=== PATIENT | female | born 1980 | race Two or more races ===

== ENCOUNTER 2016-08-06 20:42 | Emergency (ER) | payer BC ==
[~2016-08-06] VITALS: Ht 154.9 cm; Wt 90.7 kg
[2016-08-06] MEDS ORDERED: IBUPROFEN800 M1 PO (21:36)
[2016-08-06] MEDS ORDERED: DEBROX15 M1 BOTH EARS (21:36)
[2016-08-06 21:49] VITALS: BP 130/84
[2016-08-06 21:50] VITALS: BP 129/83
--- NOTE | 2016-08-06 22:30 | Emergency Room Report ---
History of Present Illness General Chief Complaint: Sore Throat Source: Patient Present Illness HPI 36 YO F with right sided sore throat and lost of voice for 2 days. History of tonsillectomy. Denies pain when swallowing, fever/chills, rash. Able to swallow pills. Associated with bilateral ear pain. Didnt take any OTC meds. + sick child at home with URI symptoms. Allergies: Coded Allergies: Shrimp (Verified Allergy, Unknown, 08/06/16) Patient History Past Medical History: none Past Surgical History: other - tonsillectomy Pertinent Family History: none Social History: Denies: alcohol use, drug use, smoking Last Menstrual Period: 07/09/16 Now: No Immunizations: UTD Reviewed Nursing Documentation: PMH: Agreed, PSxH: Agreed Nursing Documentation-PMH Past Medical History: No History, Except For Hx Asthma: Yes Review of Systems All Other Systems: negative except mentioned in HPI Physical Exam Vital Signs Date Time Temp Pulse Resp B/P Pulse Ox O2 Delivery O2 Flow Rate FiO2 08/06/16 21:15 98.1 76 16 129/83 100 Room Air Sp02 EP Interpretation: reviewed, normal General Appearance: normal inspection, well appearing, no apparent distress, alert, GCS 15, non-toxic Head: normocephalic, atraumatic Eyes: bilateral eye EOMI, bilateral eye PERRL ENT: normal ENT inspection, hearing grossly normal, normal pharynx, no angioedema, normal voice, uvula midline, moist mucus membranes, other - Bilateral TMs blocked by cerumen Neck: normal inspection, full range of motion, supple, thyroid normal, no meningismus, no bony tend Respiratory: normal inspection, lungs clear, normal breath sounds, no respiratory distress, no retraction, no accessory muscle use, no wheezing Cardiovascular #1: regular rate, rhythm, no edema Gastrointestinal: normal inspection, normal bowel sounds, non tender, soft, no guarding, no hernia Genitourinary: no CVA tenderness Musculoskeletal: normal inspection, back normal, normal range of motion, Adilia' s Sign negative Neurologic: normal inspection, alert, oriented x3, responsive, handy man III-XII nml as tested, motor strength/tone normal, speech normal Psychiatric: normal inspection, judgement/insight normal, mood/affect normal Skin: normal inspection, normal color, no rash Medical Decision Making Diagnostic Impression: Primary Impression: Sore throat ER Course 36 YO F with sore throat. VSS. Afebrile. Bilateral ear pain likely from impacted cerumen - patient uses Qtips to clean ears No sign of strep in oropharynx Likely viral laryngitis given loss of voice Decadron given in ED Rx Ibuprofen, debrox for ears PMD followup DC home Last Vital Signs Date Time Temp Pulse Resp B/P Pulse Ox O2 Delivery O2 Flow Rate FiO2 08/06/16 21:50 98.1 16 129/83 100 Room Air 08/06/16 21:49 63 Status: improved Disposition: HOME, SELF-CARE Condition: Improved Scripts Carbamide Peroxide (DEBROX) 15 Ml Drops 10 DROP BOTH EARS TWICE A DAY for 4 Days, ML 0 Refills Prov: HERIBERTO CHAHAL M.D. 08/06/16 Ibuprofen (Ibuprofen) 800 Mg Tablet 800 MG PO TID for 7 Days, #30 TAB Prov: HERIBERTO CHAHAL M.D. 08/06/16 Referrals: NON PHYSICIAN (PCP) Patient Instructions: Laryngitis Additional Instructions: - Take ibuprofen up to 3x a day with food for sore throat - Use debrox ear drops as prescribed - STOP using Qtips - Follow up with your doctor in 1 week as needed HERIBERTO CHAHAL M.D. Aug 06, 2016 22:30
== END 2016-08-06 21:52 | disposition home or self-care (01) ==
LOC: EMR 21:48
DX: J02.9 Acute pharyngitis, unspecified (principal); J45.909 Unspecified asthma, uncomplicated
CPT/HCPCS: 99284; J8540